=== PATIENT | male | born 1945 | race Hispanic/Latino ===

== ENCOUNTER → 2025-03-15 | Day surgery (SDC) | payer MEDICARE ==
[~2025-03-15] MED LIST: ASPIRIN81 MG PO; COREG12.5 MG PO; DIALYVITE 8000.8 M1 PO; FENTANYL CITRATE/PF 100MCG/2 ML INJ ONE; FUROSEMIDE40 MG PO; HYDRALAZINE HC100 MG PO; HYGROTON25 MG PO; ISOSORBIDE DINI20 MG PO; LIDOCAINE HCL 2% LOCAL INJ 5 ML SDV VIAL INJ ONE; PHENYLEPHRINE HCL 1% 10 MG/ML VIAL ONE; PROPOFOL IV EMULSION 50 ML IV ONE; VIT B12 PO
[2025-03-15] MEDS: SODIUM CHLORIDE 0.9% 500ML 500 ML ONE (06:03)
[2025-03-15 06:07] LABS: BASOPHILS % 0.7 % (0.0-1.0); EOSINOPHILS % 1.9 % (0.0-6.0); LYMPHOCYTES % 11.5 % (18.0-39.1); MONOCYTES % 9.2 % (4.4-11.3); NEUTROPHILS % 76.3 % (38.7-80.0); RED CELL DISTRIBUTION WIDTH 16.4 % (11.7-14.4)
[2025-03-15 06:23] LABS: EST GLOMERULAR FILTRATION RATE 8.0 ML/MIN (>=60); INR 0.99
[2025-03-15 07:30] VITALS: TEMP 97.7
[2025-03-15 07:55] VITALS: BP 143/63; PULSE 71; RESP 16; O2SAT 97
== END | disposition home or self-care (01) ==
LOC: OR 05:22
PROVIDERS: ATTEND Internal Medicine Gastroenterology
DX: Z12.11 Encounter for screening for malignant neoplasm of colon (principal); K29.50 Unspecified chronic gastritis without bleeding; K44.9 Diaphragmatic hernia without obstruction or gangrene; K57.30 Diverticulosis of large intestine without perforation or abscess without bleeding; K64.8 Other hemorrhoids; D50.9 Iron deficiency anemia, unspecified; I12.0 Hypertensive chronic kidney disease with stage 5 chronic kidney disease or end stage renal disease; N18.6 End stage renal disease; E78.2 Mixed hyperlipidemia; Z99.2 Dependence on renal dialysis; Z79.82 Long term (current) use of aspirin; Z87.442 Personal history of urinary calculi; Z01.810 Encounter for preprocedural cardiovascular examination; Z01.812 Encounter for preprocedural laboratory examination
CPT/HCPCS: 43239; G0105; 36415; 45378; 80048; 85025; 85610; 85730; 88305; 93005; J2003; J2371; J7040